=== PATIENT | male | born 1980 | race Caucasian/White ===

== ENCOUNTER 2020-01-30 04:53 | Emergency (ER) | payer OTHER ==
[~2020-01-30] VITALS: Ht 187.9 cm; Wt 81.6 kg
--- OUTSIDE RECORDS SUMMARY | 2020-01-30 05:18 | XMS REPORT | Continuity of Care Document ---
Author Author The [facility] Organization The [facility] Address Unknown Phone Unavailable Allergies Active Description Code Type Severity Reaction Onset Reported/Identified Relationship to Patient Clinical Status Yes No Known Allergies [id number] Drug Allergy Unknown N/A 07/23/2009 Medications There is no data. Problems Date Dx Coded Attending Type Code Diagnosis Diagnosed By 09/09/2017 NICKO GUTIÉRREZ PA-C Other F17.200 NICOTINE DEPENDENCE, UNSPECIFIED, UNCOMPLICATED 09/09/2017 NICKO GUTIÉRREZ PA-C Other J40 BRONCHITIS, NOT SPECIFIED ACUTE OR CHRONIC 09/09/2017 NICKO GUTIÉRREZ PA-C Other K04.7 PERIAPICAL ABSCESS WITHOUT SINUS 09/09/2017 NICKO GUTIÉRREZ PA-C Other K08.89 OTHER SPECIFIED DISORDERS OF TEETH AND SUPPORTING STRU CTURES 03/15/2018 NICKO GUTIÉRREZ PA-C Other S05.01XA INJ CONJUNCTIVA AND CORNEAL ABRASION W/O FB, RIGHT EYE , INIT 03/15/2018 NICKO GUTIÉRREZ PA-C Other W45.8XXA OTH FOREIGN BODY OR OBJECT ENTERING THROUGH SKIN, INIT Procedures There is no data. Results There is no data. Encounters ACCT No. Visit Date/Time Discharge Status Pt. Type Provider Facility Loc./Unit Complaint [id number] 03/15/2018 21:50:00 018 23:28:00 DIS Emergency NICKO GUTIÉRRZE PA-C [facility] [place] ER RIGHT EYE PAIN [id number] 09/09/2017 05:10:00 018 05:58:00 DIS Emergency NICKO GUTIÉRREZ PA-C [facility] [place] ER TOOTH PAIN;COUGH
--- OUTSIDE RECORDS SUMMARY | 2020-01-30 05:18 | XMS REPORT | Continuity of Care Document ---
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 Past Problems Medical Problem Onset Date Status Acute periapical abscess Unknown Acute Bronchitis Unknown Acute Right corneal abrasion Unknown Acute Toothache Unknown Acute Medications Current Home Medications Medication Dose Units Route Directions Days Qty Instructio ns Start Date Acetaminophen/Hydrocodone Bitart (Lortab) 5 Mg/500 Mg Tab 1 - 2 Tab Oral Every 4 Hours As Needed 16 Tablet 02/22/11 Acetaminophen/Hydrocodone Bitart (Lortab) 5 Mg/500 Mg Tablet 1 - 2 Tab Oral Every 6 Hours As Needed 20 Tablet Prn pain not relieved by Diclofenac 02/06/12 Diclofenac Sodium 75 Mg Tablet.dr 75 Mg Oral Twice A Day 20 Tablet 02/06/12 Naproxen 500 Mg Tablet 500 Mg Oral Twice Daily With Meals 20 Tablet 02/22/11 Ofloxacin (Ocuflox) 5 Ml Drops 2 Drp Right Eye Four Times Lucinda y 7 Days 1 Bottle 03/15/18 Past Home Medications Medication Directions Ordered Status Penicillin V Potassium 500 Mg Tablet, 500 Mg Oral Every 6 Hours 09/09/17 Discontinued Social History Social History Problem Response Recorded Date/Time Onset Date Status Marital Status 03/15/2018 10:03pm Not Applicable Not A pplicable Smoking Status Start Date Stop Date Current every day smoker Hospital Discharge Instructions No hospital discharge instruction information available. Plan of Care Discharge Date 03/15/18 11:28pm Disposition 01 HOME/SELF CARE Condition at Discharge Good Instructions/Education Provided ED Eye Injury Corneal Abrasion Prescriptions See Medication Section Referrals NONE Note: AYLEEN POSEY MD Order Date: 1-2 days Address: [facility] [address] [address] Additional Instructions/Education Ocuflox to right eye as prescribed Follow-up with ophthalmology in 1- 2 days for eye exam Take Tylenol and Motrin for pain and fever Continue any previously prescribed medications Increase fluid intake Follow-up with your primary care physician in 3-4 days or sooner if symptoms persist. Return to the emergency department for any worsening or persistent symptoms. Functional Status No functional status information available. Allergies, Adverse Reactions, Alerts No known allergies. Immunizations Immunization Event Date Type Not Given Reason Dose Number Lot Num merlyn [employer] Tetanus, Diphtheria, Pertussis (Tdap) Vaccine 03/15/18 Administered 1 [id number] [employer] Vital Signs Acute Vital Signs Vital Response Date/Time Height (Feet) 6 feet 03/15/2018 10:00pm Height (Inches) 2.00 inches 03/15/2018 10:00pm Height (Calculated Centimeters) 187.112646 cm 03/15/20 18 10:00pm Weight (Pounds) 180.0 03/15/2018 10:00pm Weight (Calculated Kilograms) 81.144403 kg 03/15/2018 10:00pm Weight (Calculated Grams) 23987.627 gm 03/15/2018 10: 00pm Body Mass Index (BMI) 23 03/15/2018 10:00pm Body Mass Index (BMI) Classification Normal Weight 06/2017 10:00pm Temperature (Fahrenheit) 98.2 degrees F (96.8 - 100.4) 03/15 11:28pm Blood Pressure Systolic 127 mm Hg (100 - 140) 03/15/2018 11: 28pm Blood Pressure Diastolic 83 mm Hg (60 - 100) 03/15/2018 11:2 8pm Pulse Rate (adult) 73 beats per minute (60 - 100) 8 11:28pm Respirations 18 breaths per minute (12 - 20) 03/15/20 18 11:28pm O2 Sat by Pulse Oximetry 98 % (90 - 100) 03/15/2018 11:2 8pm Results No relevant diagnostic test, laboratory data and/or discharge summary informatio n available. Procedures Procedure Status Date Provider(s) EMERGENCY DEPT VISIT Completed 09/09/17 EMERGENCY DEPT VISIT Completed 09/09/17 DRUGS UNCLASSIFIED INJECTION Completed 09/09/17 DRUGS UNCLASSIFIED INJECTION Completed 09/09/17 Encounters Encounter Location Arrival/Admit Date Discharge/Depart Date Attending Provider Departed Emergency Room [facility] 03/15/18 9:50pm 03/15/18 11:28pm NICKO GUTIÉRREZ PA-C Departed Emergency Room [facility] 09/09/17 5:10am 09/09/17 5:58am NICKO GUTIÉRREZ PA-C Recent Diagnosis
--- NOTE | 2020-01-30 05:25 | ED Headache ---
General Chief Complaint: Head/Cervical Problems Stated Complaint: MIGRAINE Nursing Triage Note: Patient came in via EMS with a migraine. EMS gave 50mcg of Fentanyl. Patient rates his pain at a 9. Nursing Sepsis Screen: No Definite Risk History of Present Illness Date Seen by Provider: Jan 30, 2020 Time Seen by Provider: 05:22 Initial Comments Pt brought by EMS from home for headache. Started about 90 minutes ago. He reports a history of migraines, but hasn't had one this bad in a log time. Normally takes some Advil and it gets better. He was given 50 mcg of Fentanyl en route. Allergies and Home Medications Allergies Coded Allergies: No Known Drug Allergies (Unverified , 01/30/20) Patient Home Medication List Home Medication List Reviewed: Yes Review of Systems Review of Systems Constitutional: no symptoms reported Eyes: Photophobia Ears, Nose, Mouth, Throat: no symptoms reported Respiratory: no symptoms reported Cardiovascular: no symptoms reported Gastrointestinal: nausea; No vomiting Psychiatric/Neurological: Headache Past Fuxotxk-Hxpply-Oqpfih Hx Patient Social History Alcohol Use: Denies Use Recreational Drug Use: No Smoking Status: Current Everyday Smoker Type Used: Cigarettes Recent Foreign Travel: No Contact w/Someone Who Travel: No Recent Infectious Disease Expo: No Physical Abuse: No Sexual Abuse: No Mistreated: No Fear: No Past Medical History Surgeries: Yes Appendectomy Respiratory: No Cardiac: No Neurological: Yes Headaches /Migraines Genitourinary: No Gastrointestinal: No Musculoskeletal: No Endocrine: No HEENT: No Cancer: No Psychosocial: No Integumentary: No Physical Exam Vital Signs Vital Signs - First Documented 01/30/20 05:02 Temp 36.6 Pulse 78 Resp 18 B/P (MAP) 147/88 (107) Pulse Ox 96 O2 Delivery Room Air Capillary Refill : Less Than 3 Seconds Height, Weight, BMI Height: '" Weight: lbs. oz. kg; 23.00 BMI Method: General Appearance: WD/WN, no apparent distress HEENT: PERRL/EOMI, photophobia Neck: supple Cardiovascular: normal peripheral pulses, regular rate, rhythm Respiratory: lungs clear, normal breath sounds, no respiratory distress Gastrointestinal: non tender, soft Psychiatric: alert, oriented x 3 Motor/Sensory: no motor deficit, no sensory deficit Progress/Results/Core Measures Results/Orders My Orders Orders - NEREIDA MARCELINO MD Ketorolac Injection (Toradol Injection) (01/30/20 05:30) Prochlorperazine Injection (Compazine In (01/30/20 05:30) Ct Head Wo (01/30/20 05:21) Medications Given in ED Current Medications Medications Dose Ordered Sig/Lillian Route Start Time Stop Time Status Last Admin Dose Admin Ketorolac Tromethamine 30 mg ONCE ONCE IVP 01/30/20 05:30 01/30/20 05:31 DC 01/30/20 05:26 30 MG Prochlorperazine Edisylate 10 mg ONCE ONCE IV 01/30/20 05:30 01/30/20 05:31 DC 01/30/20 05:25 10 MG Vital Signs/I&O 01/30/20 05:02 Temp 36.6 Pulse 78 Resp 18 B/P (MAP) 147/88 (107) Pulse Ox 96 O2 Delivery Room Air Blood Pressure Mean: 107 Transfer of Care Time: 06:00 Care transferred to: Dr. Nair Departure Impression Primary Impression: Headache Qualified Codes: R51 - Headache Disposition: 30 STILL A PATIENT Condition: Stable Departure-Patient Inst. Referrals: NO,LOCAL PHYSICIAN (PCP/Family) Primary Care Physician Patient Instructions: Migraine Headache (DC) NEREIDA MARCELINO MD Jan 30, 2020 05:25
[2020-01-30] MEDS ORDERED: KETOROLAC 30 MG/ML VIAL IVP ONE (05:30)
[2020-01-30] MEDS ORDERED: PROCHLORPERAZINE 10 MG/2ML INJ (COMPAZINE) IV ONE (05:30)
[2020-01-30 06:20] VITALS: BP 147/88
--- NOTE | 2020-01-30 06:22 | Diagnostic Imaging Report ---
PROCEDURE: CT head without contrast. TECHNIQUE: Multiple contiguous axial images were obtained through the brain without the use of intravenous contrast. Auto Exposure Controls were utilized during the CT exam to meet ALARA standards for radiation dose reduction. INDICATION: Migraine headache. COMPARISON: None. FINDINGS: Ventricles are normal in size, shape and position. There is no midline shift or mass effect. There is no hemorrhage or evidence of acute ischemia. No extra-axial fluid collection or mass is identified. The bony calvarium and paranasal sinuses grossly unremarkable. Mastoids are poorly aerated. There is no effusion. IMPRESSION: No acute intracranial abnormalities. Dictated by: Dictated on workstation # [id number]
== END 2020-01-30 06:20 | disposition home or self-care (01) ==
LOC: ER FS 05:15
DX: R51 Headache (principal); F17.210 Nicotine dependence, cigarettes, uncomplicated; Z86.69 Personal history of other diseases of the nervous system and sense organs
CPT/HCPCS: 70450

== ENCOUNTER 2023-03-22 18:34 | Inpatient (IN) | payer OTHER ==
[~2023-03-22] VITALS: Ht 190.5 cm; Wt 87.8 kg
[2023-03-22 18:43] LABS: BILIRUBIN,URINE NEGATIVE (NEGATIVE); CLARITY,URINE CLEAR; COLOR,URINE YELLOW; GLUCOSE, URINE (UA) 3+ (NEGATIVE); KETONES,URINE NEGATIVE (NEGATIVE); LEUKOCYTE ESTERASE ,URINE NEGATIVE (NEGATIVE); NITRITE,URINE NEGATIVE (NEGATIVE); PROTEIN,URINE NEGATIVE (NEGATIVE)
[2023-03-22] MEDS ORDERED: NS IV 1000 ML 2,000 ML IV SCH (18:45)
[2023-03-22 18:46] LABS: BACTERIA,URINE NEGATIVE /HPF
--- NOTE | 2023-03-22 18:47 | ED General ---
General Chief Complaint: - Reproductive Stated Complaint: FREQUENT URINATION; FATIGUE; BLURRY VISION Source of Information: Patient, Family Exam Limitations: No Limitations History of Present Illness Date Seen by Provider: Mar 22, 2023 Time Seen by Provider: 18:38 Initial Comments 42-year-old male with no known medical problems presents to the emergency department today for fatigue blurred vision increased thirst and frequent urination. Symptoms started about a week ago with increased urination and thirst in the 50 have's been progressive since that time. He started to have blurred vision today. He is not known to be diabetic and his blood sugar is too high to read on arrival. He denies any fevers chills cough abdominal pain chest pain or changes in bowel habits. No dysuria or hematuria. All other systems reviewed and negative except documented per HPI. Voice recognition software was used to help create this chart Allergies and Home Medications Allergies Coded Allergies: No Known Drug Allergies (Unverified , 01/30/20) Patient Home Medication List Home Medication List Reviewed: Yes Review of Systems Review of Systems Constitutional: see HPI Past Iohtthc-Iwtmeg-Ncbwoj Hx Patient Social History Tobacco Use?: Yes Tobacco type used: Cigarettes Use of E-Cig and/or Vaping dev: No Substance use?: No Alcohol Use?: No Past Medical History Surgeries: Yes Appendectomy Respiratory: No Cardiac: No Neurological: Yes Headaches /Migraines Genitourinary: No Gastrointestinal: No Musculoskeletal: No Endocrine: No HEENT: No Cancer: No Psychosocial: No Integumentary: No Physical Exam Vital Signs Vital Signs - First Documented 03/22/23 18:36 Temp 36.5 Pulse 87 Resp 18 B/P (MAP) 132/88 (103) Pulse Ox 99 O2 Delivery Room Air Capillary Refill : Height, Weight, BMI Height: '" Weight: lbs. oz. 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 Skin: Normal Color, Warm/Dry Progress/Results/Core Measures Suspected Sepsis SIRS Temperature: Pulse: Respiratory Rate: Laboratory Tests 03/22/23 18:45: White Blood Count 7.8 Blood Pressure / Mean: Laboratory Tests 03/22/23 18:45: Creatinine 1.04, Platelet Count 214, Total Bilirubin 0.9 Results/Orders Lab Results Laboratory Tests Test 03/22/23 18:36 03/22/23 18:45 Range/Units Urine Color YELLOW Urine Clarity CLEAR Urine pH 6.0 5-9 Urine Specific [place] <=1.005 1.016-1.022 Urine Protein NEGATIVE NEGATIVE Urine Glucose (UA) 3+ H NEGATIVE Urine Ketones NEGATIVE NEGATIVE Urine Nitrite NEGATIVE NEGATIVE Urine Bilirubin NEGATIVE NEGATIVE Urine Urobilinogen 0.2 < = 1.0 MG/DL Urine Leukocyte Esterase NEGATIVE NEGATIVE Urine RBC (Auto) NEGATIVE NEGATIVE Urine RBC NONE /HPF Urine WBC NONE /HPF Urine Squamous Epithelial Cells NONE /HPF Urine Crystals NONE /LPF Urine Bacteria NEGATIVE /HPF Urine Casts NONE /LPF Urine Mucus NEGATIVE /LPF Urine Culture Indicated NO White Blood Count 7.8 4.3-11.0 10^3/uL Red Blood Count 5.62 H 4.30-5.52 10^6/uL Hemoglobin 17.9 H 13.3-17.7 g/dL Hematocrit 50 40-54 % Mean Corpuscular Volume 89 80-99 fL Mean Corpuscular Hemoglobin 32 25-34 pg Mean Corpuscular Hemoglobin Concent 36 32-36 g/dL Red Cell Distribution Width 12.0 10.0-14.5 % Platelet Count 214 130-400 10^3/uL Mean Platelet Volume 11.6 9.0-12.2 fL Immature Granulocyte % (Auto) 0 % Neutrophils (%) (Auto) 60 42-75 % Lymphocytes (%) (Auto) 30 12-44 % Monocytes (%) (Auto) 7 0-12 % Eosinophils (%) (Auto) 2 0-10 % Basophils (%) (Auto) 1 0-10 % Neutrophils # (Auto) 4.7 1.8-7.8 10^3/uL Lymphocytes # (Auto) 2.3 1.0-4.0 10^3/uL Monocytes # (Auto) 0.6 0.0-1.0 10^3/uL Eosinophils # (Auto) 0.1 0.0-0.3 10^3/uL Basophils # (Auto) 0.1 0.0-0.1 10^3/uL Immature Granulocyte # (Auto) 0.0 0.0-0.1 10^3/uL Sodium Level 125 *L 135-145 MMOL/L Potassium Level 5.4 H 3.6-5.0 MMOL/L Chloride Level 86 L 98-107 MMOL/L Carbon Dioxide Level 25 21-32 MMOL/L Anion Gap 14 5-14 MMOL/L Blood Urea Nitrogen 18 7-18 MG/DL Creatinine 1.04 0.60-1.30 MG/DL Estimat Glomerular Filtration Rate 93 BUN/Creatinine Ratio 17 Glucose Level 970 *H 70-105 MG/DL Calcium Level 10.6 H 8.5-10.1 MG/DL Corrected Calcium 8.5-10.1 MG/DL Total Bilirubin 0.9 0.1-1.0 MG/DL Aspartate Amino Transf (AST/SGOT) 18 5-34 U/L Alanine Aminotransferase (ALT/SGPT) 27 0-55 U/L Alkaline Phosphatase 214 H 40-136 U/L Total Protein 8.8 H 6.4-8.2 GM/DL Albumin 4.9 H 3.2-4.5 GM/DL My Orders Orders - AC BURLESON DO Ua Culture If Indicated (03/22/23 18:38) Cbc And Automated Diff (03/22/23 18:38) Comprehensive Metabolic Panel (03/22/23 18:38) Accucheck Stat ONCE (03/22/23 18:39) Ns Iv 1000 Ml (Ns Iv 1000 Ml) (03/22/23 18:45) Ed Iv/Invasive Line Start (03/22/23 18:59) Insulin Regular Drip (Insulin Regular Dr (03/22/23 19:15) Ed Admission (Communication) (03/22/23 19:21) Vital Signs/I&O 03/22/23 18:36 Temp 36.5 Pulse 87 Resp 18 B/P (MAP) 132/88 (103) Pulse Ox 99 O2 Delivery Room Air Capillary Refill : Departure Communication (Admissions) Patient is hemodynamically stable. He is alert oriented with normal vital signs at this time. He is minimally symptomatic. His blood sugars 962. Sodium is low but corrects for glucose. Potassium slightly elevated at 5.4. Does have a slight elevation of alk phos and total protein. CBC is unremarkable. Is no evidence for any overt infection I think this is undiagnosed diabetes mellitus and likely HHNK he is given 2 L of IV fluids and started on an insulin drip. I spoke Dr. Maldonado he has no further orders at this time. Patient be admitted to the ICU in [place] on an insulin drip. Impression Primary Impression: Diabetes mellitus Qualified Codes: E11.9 - Type 2 diabetes mellitus without complications Disposition: 30 STILL A PATIENT Condition: Stable Admissions Decision to Admit Reason: Admit from ER (General) Departure-Patient Inst. Referrals: NO,LOCAL PHYSICIAN (PCP/Family) Primary Care Physician AC BURLESON DO Mar 22, 2023 18:47
[2023-03-22 18:50] LABS: BASOPHILS # (AUTO) 0.1 10^3/uL (0.0-0.1); BASOPHILS % (AUTO) 1 % (0-10); EOSINOPHILS # (AUTO) 0.1 10^3/uL (0.0-0.3); EOSINOPHILS % (AUTO) 2 % (0-10); HEMATOCRIT 50 % (40-54); HEMOGLOBIN 17.9 g/dL (13.3-17.7); LYMPHOCYTES # (AUTO) 2.3 10^3/uL (1.0-4.0); LYMPHOCYTES % (AUTO) 30 % (12-44); MEAN CORPUSCULAR HEMOGLOBIN 32 pg (25-34); MEAN CORPUSCULAR HGB CONC 36 g/dL (32-36); MEAN CORPUSCULAR VOLUME 89 fL (80-99); MEAN PLATELET VOLUME 11.6 fL (9.0-12.2); MONOCYTES # (AUTO) 0.6 10^3/uL (0.0-1.0); MONOCYTES % (AUTO) 7 % (0-12); NEUTROPHILS # (AUTO) 4.7 10^3/uL (1.8-7.8); NEUTROPHILS % (AUTO) 60 % (42-75); PLATELET COUNT 214 10^3/uL (130-400); WHITE BLOOD COUNT 7.8 10^3/uL (4.3-11.0)
[2023-03-22 19:08] LABS: ALANINE AMINOTRANSFERASE 27 U/L (0-55); ALBUMIN 4.9 GM/DL (3.2-4.5); ALKALINE PHOSPHATASE 214 U/L (40-136); BILIRUBIN,TOTAL 0.9 MG/DL (0.1-1.0); BUN/CREATININE RATIO 17; CALCIUM 10.6 MG/DL (8.5-10.1); CARBON DIOXIDE 25 MMOL/L (21-32); CHLORIDE 86 MMOL/L (98-107); CREATININE SERUM 1.04 MG/DL (0.60-1.30); GFR ESTIMATED 93; POTASSIUM 5.4 MMOL/L (3.6-5.0); TOTAL PROTEIN 8.8 GM/DL (6.4-8.2)
[2023-03-22 19:10] LABS: SODIUM 125 MMOL/L (135-145)
[2023-03-22 19:19] LABS: GLUCOSE 970 MG/DL (70-105)
[2023-03-22] MEDS ORDERED: ACETAMINOPHEN 500 MG TABLET PO PRN (21:15)
[2023-03-22] MEDS ORDERED: DEXTROSE 50% 50 ML (IMS) SYR IV PRN ×2 (21:15)
[2023-03-22] MEDS: NS IV 1000 ML 1,000 ML IV SCH (21:34)
--- NOTE | 2023-03-23 00:46 | Tele-ICU Consult ---
Progress Note 42 yo male presented with fatigue, blurred vision, thirst, found to have hyperglycemia, no anion gap or acidosis, was on non DKA protocol per bedside nurse Focused Exam Sepsis Stage: Ruled Out Height, Weight, BMI Height: '" Weight: lbs. oz. kg; 24.49 BMI Method: Respiratory: No Accessory Muscle Use, No Respiratory Distress Allergies and Home Medications Allergies Coded Allergies: No Known Drug Allergies (Unverified , 01/30/20) Assessment/Plan Assessment/Plan Admission Diagnosis/Plan Uncontrolled DM, resolve with insulin, get f/u labs Admission Status: Observation Past Ykrbtjq-Wylpda-Iiuuar Hx Patient Social History Smoking Status: Current Everyday Smoker Type Used: Cigarettes Alcohol Use?: No Vital Signs Vitals Signs Source: Oral, Heart Rate: 75, Respiratory Rate: 18, BP: 121/79, Pulse Oximetry: 97, Weight: 88.9 Vitals - Labs Vital Signs - I&O Vital Signs Date Time Temp Pulse Resp B/P (MAP) Pulse Ox O2 Delivery O2 Flow Rate FiO2 03/23/23 00:15 36.2 03/23/23 00:00 77 19 112/80 (91) 97 Room Air 03/22/23 23:59 97 Room Air 03/22/23 23:00 73 14 97/60 (72) 96 Room Air 03/22/23 22:00 77 20 108/82 (89) 96 Room Air 03/22/23 21:50 97 Room Air 03/22/23 21:45 79 16 96 Room Air 03/22/23 21:30 74 14 111/82 (90) 97 Room Air 03/22/23 21:15 77 18 119/81 (88) 97 Room Air 03/22/23 21:00 36.0 87 10 138/124 (131) 97 Room Air 03/22/23 20:57 75 03/22/23 20:01 72 18 121/79 98 Room Air 03/22/23 18:36 36.5 87 18 132/88 (103) 99 Room Air I & O 03/23/23 07:00 Intake Total 2000 ml Balance 2000 ml Labs Laboratory Tests 03/22/23 18:36: Urine Color YELLOW, Urine Clarity CLEAR, Urine pH 6.0, Urine Specific [place] <=1.005, Urine Protein NEGATIVE, Urine Glucose (UA) 3+H, Urine Ketones NEGATIVE, Urine Nitrite NEGATIVE, Urine Bilirubin NEGATIVE, Urine Urobilinogen 0.2, Urine Leukocyte Esterase NEGATIVE, Urine RBC (Auto) NEGATIVE, Urine RBC NONE, Urine WBC NONE, Urine Squamous Epithelial Cells NONE, Urine Crystals NONE, Urine Bacteria NEGATIVE, Urine Casts NONE, Urine Mucus NEGATIVE, Urine Culture Indicated NO 03/22/23 18:45: White Blood Count 7.8, Red Blood Count 5.62H, Hemoglobin 17.9H, Hematocrit 50, Mean Corpuscular Volume 89, Mean Corpuscular Hemoglobin 32, Mean Corpuscular Hemoglobin Concent 36, Red Cell Distribution Width 12.0, Platelet Count 214, Mean Platelet Volume 11.6, Immature Granulocyte % (Auto) 0, Neutrophils (%) (Auto) 60, Lymphocytes (%) (Auto) 30, Monocytes (%) (Auto) 7, Eosinophils (%) (Auto) 2, Basophils (%) (Auto) 1, Neutrophils # (Auto) 4.7, Lymphocytes # (Auto) 2.3, Monocytes # (Auto) 0.6, Eosinophils # (Auto) 0.1, Basophils # (Auto) 0.1, Immature Granulocyte # (Auto) 0.0, Sodium Level 125*L, Potassium Level 5.4H, Chloride Level 86L, Carbon Dioxide Level 25, Anion Gap 14, Blood Urea Nitrogen 18, Creatinine 1.04, Estimat Glomerular Filtration Rate 93, BUN/Creatinine Ratio 17, Glucose Level 970*H, Calcium Level 10.6H, Corrected Calcium , Total Bilirubin 0.9, Aspartate Amino Transf (AST/SGOT) 18, Alanine Aminotransferase (ALT/SGPT) 27, Alkaline Phosphatase 214H, Total Protein 8.8H, Albumin 4.9H 03/22/23 20:57: Glucometer 486*H 03/22/23 21:56: Glucometer 281H 03/22/23 22:58: Glucometer 242H 03/22/23 23:54: Glucometer 179H NOLA POLO MD Mar 23, 2023 00:45
[2023-03-23 01:18] LABS: BASOPHILS # (AUTO) 0.1 10^3/uL (0.0-0.1); BASOPHILS % (AUTO) 1 % (0-10); EOSINOPHILS # (AUTO) 0.2 10^3/uL (0.0-0.3); EOSINOPHILS % (AUTO) 2 % (0-10); HEMATOCRIT 44 % (40-54); LYMPHOCYTES # (AUTO) 4.6 10^3/uL (1.0-4.0); LYMPHOCYTES % (AUTO) 45 % (12-44); MEAN CORPUSCULAR HEMOGLOBIN 32 pg (25-34); MEAN CORPUSCULAR HGB CONC 37 g/dL (32-36); MEAN CORPUSCULAR VOLUME 86 fL (80-99); MEAN PLATELET VOLUME 11.3 fL (9.0-12.2); MONOCYTES # (AUTO) 0.9 10^3/uL (0.0-1.0); MONOCYTES % (AUTO) 9 % (0-12); NEUTROPHILS # (AUTO) 4.3 10^3/uL (1.8-7.8); NEUTROPHILS % (AUTO) 42 % (42-75); PLATELET COUNT 225 10^3/uL (130-400); WHITE BLOOD COUNT 10.2 10^3/uL (4.3-11.0)
[2023-03-23 01:27] LABS: POTASSIUM 3.2 MMOL/L (3.6-5.0)
[2023-03-23 01:28] LABS: CALCIUM 8.8 MG/DL (8.5-10.1)
[2023-03-23 01:33] LABS: CREATININE SERUM 0.92 MG/DL (0.60-1.30); PHOSPHORUS 3.9 MG/DL (2.3-4.7)
[2023-03-23] MEDS ORDERED: NS IV 500 ML 500 ML IV PRN (03:00)
[2023-03-23] MEDS: NS IV 1000 ML 1,000 ML IV SCH (03:33)
[2023-03-23 05:16] LABS: BASOPHILS # (AUTO) 0.1 10^3/uL (0.0-0.1); BASOPHILS % (AUTO) 1 % (0-10); EOSINOPHILS # (AUTO) 0.2 10^3/uL (0.0-0.3); EOSINOPHILS % (AUTO) 2 % (0-10); HEMATOCRIT 40 % (40-54); HEMOGLOBIN 14.7 g/dL (13.3-17.7); LYMPHOCYTES # (AUTO) 2.8 10^3/uL (1.0-4.0); LYMPHOCYTES % (AUTO) 37 % (12-44); MEAN CORPUSCULAR HEMOGLOBIN 32 pg (25-34); MEAN CORPUSCULAR HGB CONC 37 g/dL (32-36); MEAN CORPUSCULAR VOLUME 87 fL (80-99); MEAN PLATELET VOLUME 11.4 fL (9.0-12.2); MONOCYTES # (AUTO) 0.5 10^3/uL (0.0-1.0); MONOCYTES % (AUTO) 6 % (0-12); NEUTROPHILS % (AUTO) 53 % (42-75); PLATELET COUNT 180 10^3/uL (130-400); WHITE BLOOD COUNT 7.6 10^3/uL (4.3-11.0)
[2023-03-23 05:30] LABS: POTASSIUM 3.4 MMOL/L (3.6-5.0)
[2023-03-23 05:31] LABS: CALCIUM 8.1 MG/DL (8.5-10.1)
[2023-03-23] MEDS: MAGNESIUM 1 GM/100 ML IVPB 100 ML IV SCH (05:34)
[2023-03-23] MEDS: POTASSIUM CL 10MEQ/50ML IVPB 50 ML IV SCH (05:34)
[2023-03-23 05:35] LABS: CREATININE SERUM 0.83 MG/DL (0.60-1.30)
[2023-03-23] MEDS: POTASSIUM CHLORIDE 20 MEQ TABLET PO SCH (05:35)
[2023-03-23] MEDS ORDERED: POTASSIUM CHLORIDE 20 MEQ TABLET PO ONE (06:00)
[2023-03-23] MEDS ORDERED: D5 1/2NS + KCL 20 MEQ/L 1000ML 1,000 ML IV SCH (09:30)
--- NOTE | 2023-03-23 09:34 | Tele-ICU Progress Note ---
Subjective Date Seen by a Provider: Mar 23, 2023 Time Seen by a Provider: 10:20 Subjective/Events-last exam (Tele-ICU Physician , Progress Note ) Service provided via interactive audio and video telecommunications [facility] stem to a patient admitted to ICU bed in [facility]. Patient is seen today due to persistent need of ICU care Available chart/ vitals / labs / Images reviewed Video assessment done using teleICU camera, rest of exam as per RN He is a 42-year-old male with no known past medical history presented to the emergency room with a complaint of increased thirst and frequent urination. And he is found to have a markedly elevated blood sugar with a normal anion gap. He denies any fever chills chest pain or abdominal pain. He does however have a blurred vision. He is not known to have any diabetes in the past. He is diagnosed with HHS and admitted to the ICU started on IV insulin per protocol. Impression 1. HHS 2. Hyponatremia secondary to hyperglycemia with pseudohyponatremia. 3. Hypokalemia secondary to HHS and insulin treatment. Recommendations 1. Continue IV insulin per protocol 2. Correct electrolyte imbalance 3. Hydrate patient with D5 half-normal saline 4. Check hemoglobin A1c. Coordination of care with primary care physician and bedside consultants I am remotely monitoring this patient from Tele icu station in [place]. I am unable to do the bedside exam, and history/physical and pertinent information is taken from other notes in the computer and bedside staff. Certain portions of this document may have been dictated utilizing voice recognition technology such as [employer]. Inherent to this technology, typographical and grammatical errors may exist. As much as I am diligent to identify and correct to these mistakes, some errors may remain in the document. Critical care time devoted to this patient today is approximately is-25 minutes Sepsis Event Evaluation Height, Weight, BMI Height: '" Weight: lbs. oz. kg; 24.49 BMI Method: Exam Exam Patient acknowledged, consented, and participated in this virtual visit which was conducted using real time audio/video Vital Signs Date Time Temp Pulse Resp B/P (MAP) Pulse Ox O2 Delivery O2 Flow Rate FiO2 03/23/23 09:00 68 18 106/63 (77) 95 Room Air 03/23/23 08:00 71 10 109/70 (83) 96 Room Air 03/23/23 07:38 36.4 10/9/23 07:29 58 03/23/23 07:00 60 14 108/70 (83) 96 Room Air 03/23/23 06:30 56 14 95 Room Air 03/23/23 06:00 62 16 106/60 (84) 95 Room Air 03/23/23 05:00 60 13 114/72 (84) 96 Room Air 03/23/23 04:41 97 Room Air 03/23/23 04:00 36.0 70 18 97/62 (77) 92 Room Air 03/23/23 03:00 64 15 96/49 (62) 92 Room Air 03/23/23 02:15 64 16 94 Room Air 03/23/23 02:00 69 8 105/68 (77) 95 Room Air 03/23/23 01:00 70 24 103/65 (77) 95 Room Air 03/23/23 01:00 75 03/23/23 00:15 36.2 03/23/23 00:00 77 19 112/80 (91) 97 Room Air 03/22/23 23:59 97 Room Air 03/22/23 23:00 73 14 97/60 (72) 96 Room Air 03/22/23 22:00 77 20 108/82 (89) 96 Room Air 03/22/23 21:50 97 Room Air 03/22/23 21:45 79 16 96 Room Air 03/22/23 21:30 74 14 111/82 (90) 97 Room Air 03/22/23 21:15 77 18 119/81 (88) 97 Room Air 03/22/23 21:00 36.0 87 10 138/124 (131) 97 Room Air 03/22/23 20:57 75 03/22/23 20:01 72 18 121/79 98 Room Air 03/22/23 18:36 36.5 87 18 132/88 (103) 99 Room Air I & O 03/23/23 07:00 Intake Total 3900 ml Balance 3900 ml Height & Weight Height: '" Weight: lbs. oz. 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
[2023-03-23] MEDS: ENOXAPARIN 40 MG/0.4 ML SYRINGE SC SCH (12:29)
[2023-03-23] MEDS ORDERED: inSUlin DETERMIR 1 UNIT/0.01 ML (CHARGE PER UNIT) SQ NR (13:30)
[2023-03-23] MEDS ORDERED: metFORMIN 500 MG TABLET PO ONE (14:45)
[2023-03-23] MEDS: inSUlin ASPART 1 UNIT/0.01 ML (PER UNIT) SC SCH ×2 (16:23→21:08)
[2023-03-23] MEDS: NICOTINE 21 MG PATCH TD SCH (16:32)
--- NOTE | 2023-03-23 18:53 | History & Physical-Hospitalist ---
History of Present Illness HPI/Chief Complaint Hugo Sanchez is a 42 year old male with no known past medical history who presented with fatigue. He was also having increased urination and excessive thirst. He denies increased appetite. He denies abdominal pain, nausea, and vomiting. He denies chest pain. He denies shortness of breath and cough. He denies fevers and chills. He denies sore throat and runny nose. He has a family history of diabetes in his grandmother. He smokes a pack of cigarettes daily. He also drinks a 12 pack of Mountain Dew daily. Source: patient Exam Limitations: no limitations Date Seen 03/23/23 Time Seen by a Provider: 10:10 Attending Physician No,Local Physician PCP Admitting Physician: Walter Maldonado MD Attending Physician: Arianna Barboza MD Referring Physician Date of Admission Mar 22, 2023 at 20:51 Home Medications & Allergies Home Medications Reviewed patient Home Medication Reconciliation performed by pharmacy medication reconciliations emergency medical technician and/or nursing. Patients Allergies have been reviewed. Allergies Allergies Coded Allergies No Known Drug Allergies (Unverified01/30/20) Past Bxuzkrz-Ztdfis-Gvlabh Hx Patient Social History Tobacco Use?: No Tobacco type used: Cigarettes Smoking Status: Current Everyday Smoker Use of E-Cig and/or Vaping dev: No Substance use?: No Alcohol Use?: No Pt feels they are or have been: No Immunizations Up To Date Tetanus Booster (TDap): More Than 5 Years Current Status Advance Directives: No Communicates: Verbally Primary Language: Russian Preferred Spoken Language: Russian Is interpretation needed?: No Implanted or Applied Medical D: None Past Medical History Surgeries: Appendectomy Headaches /Migraines Review of Systems Constitutional: weakness Respiratory: no symptoms reported Cardiovascular: no symptoms reported Gastrointestinal: no symptoms reported Genitourinary: frequency Physical Exam Physical Exam Vital Signs Vital Signs - First Documented 03/22/23 18:36 Temp 36.5 Pulse 87 Resp 18 B/P (MAP) 132/88 (103) Pulse Ox 99 O2 Delivery Room Air Capillary Refill : Less Than 3 Seconds Height, Weight, BMI Height: '" Weight: lbs. oz. kg; 24.49 BMI Method: General Appearance: No Apparent Distress, WD/WN HEENT: PERRL/EOMI, Pharynx Normal Neck: Normal Inspection, Supple Respiratory: Lungs Clear, No Respiratory Distress Cardiovascular: Regular Rate, Rhythm, No Murmur Gastrointestinal: Normal Bowel Sounds, Soft Extremity: Normal Inspection, No Pedal Edema Neurologic/Psychiatric: Alert, Normal Mood/Affect Skin: Normal Color, Warm/Dry Results Results/Procedures Labs Laboratory Tests 03/22/23 18:45 03/23/23 01:05 03/23/23 04:55 Patient resulted labs reviewed. Imaging: Reviewed Imaging Report Assessment/Plan Admission Diagnosis T2DM with HHS Admission Status: Inpatient Order (span 2 midnights) Reason for Inpatient Admission: Insulin drip Assessment and Plan New onset T2DM with HHS Pseudohyponatremia Hyperkalemia Hypokalemia Glucose >900 on arrival No ketoacidosis IV fluids IV insulin Blood sugars improved Begin Levemir Transition off drip Begin Metformin Sliding scale insulin A Diabetes education Monitor and correct electrolytes as needed Transfer to medical floor Excessive consumption of soda pop Cessation recommended Tobacco abuse Cessation recommended DVT prophylaxis: Lovenox Critical Care Critically Ill Patient Diagnosis/Problems Diagnosis/Problems (1) New onset type 2 diabetes mellitus Status: Acute (2) T2DM (type 2 diabetes mellitus) Status: Acute Qualifiers: Diabetes mellitus detention insulin use: without termite control representative use Diabetes mellitus complication status: with hyperosmolarity Diabetes mellitus complication detail: without coma Qualified Codes: E11.00 - Type 2 diabetes mellitus with hyperosmolarity without nonketotic hyperglycemic-hyperosmolar coma ([facility]) (3) Pseudohyponatremia Status: Acute (4) Hyperkalemia Status: Acute (5) Hypokalemia Status: Acute (6) Excessive consumption of soda pop (7) Tobacco abuse ARIANNA BARBOZA MD Mar 23, 2023 18:53
[2023-03-23 23:40] VITALS: BP 105/64
[2023-03-24 03:31] VITALS: BP 106/69
[2023-03-24 06:03] LABS: BASOPHILS % (AUTO) 1 % (0-10); EOSINOPHILS # (AUTO) 0.1 10^3/uL (0.0-0.3); EOSINOPHILS % (AUTO) 2 % (0-10); HEMATOCRIT 41 % (40-54); HEMOGLOBIN 14.8 g/dL (13.3-17.7); LYMPHOCYTES # (AUTO) 2.6 10^3/uL (1.0-4.0); LYMPHOCYTES % (AUTO) 47 % (12-44); MEAN CORPUSCULAR HEMOGLOBIN 32 pg (25-34); MEAN CORPUSCULAR HGB CONC 36 g/dL (32-36); MEAN CORPUSCULAR VOLUME 88 fL (80-99); MEAN PLATELET VOLUME 11.3 fL (9.0-12.2); MONOCYTES # (AUTO) 0.3 10^3/uL (0.0-1.0); MONOCYTES % (AUTO) 6 % (0-12); NEUTROPHILS # (AUTO) 2.5 10^3/uL (1.8-7.8); NEUTROPHILS % (AUTO) 44 % (42-75); PLATELET COUNT 170 10^3/uL (130-400); WHITE BLOOD COUNT 5.6 10^3/uL (4.3-11.0)
[2023-03-24 06:26] LABS: ALBUMIN 3.3 GM/DL (3.2-4.5); CHLORIDE 107 MMOL/L (98-107); POTASSIUM 3.9 MMOL/L (3.6-5.0); SODIUM 134 MMOL/L (135-145)
[2023-03-24 06:27] LABS: CALCIUM 8.3 MG/DL (8.5-10.1)
[2023-03-24 06:28] LABS: TRIGLYCERIDES 453 MG/DL (<150)
[2023-03-24 06:29] LABS: CARBON DIOXIDE 19 MMOL/L (21-32); GLUCOSE 174 MG/DL (70-105)
[2023-03-24 06:30] LABS: BILIRUBIN,TOTAL 0.4 MG/DL (0.1-1.0)
[2023-03-24] MEDS: POTASSIUM CHLORIDE 20 MEQ TABLET PO SCH (06:31)
[2023-03-24] MEDS: POTASSIUM CL 10MEQ/50ML IVPB 50 ML IV SCH (06:31)
[2023-03-24 06:32] LABS: ALKALINE PHOSPHATASE 84 U/L (40-136); CREATININE SERUM 0.83 MG/DL (0.60-1.30); GFR ESTIMATED 113; PHOSPHORUS 2.9 MG/DL (2.3-4.7)
[2023-03-24 06:33] LABS: BUN/CREATININE RATIO 8; CHOLESTEROL 171 MG/DL (< 200)
[2023-03-24 06:34] LABS: HDL CHOLESTEROL 23 MG/DL (40-60)
[2023-03-24 06:35] LABS: ALANINE AMINOTRANSFERASE 20 U/L (0-55); MAGNESIUM 1.9 MG/DL (1.6-2.4)
[2023-03-24] MEDS: MAGNESIUM 1 GM/100 ML IVPB 100 ML IV SCH ×3 (06:36→06:45)
[2023-03-24] MEDS ORDERED: MAGNESIUM 1 GM/100 ML IVPB 200 ML IV ONE (06:41)
[2023-03-24] MEDS: inSUlin ASPART 1 UNIT/0.01 ML (PER UNIT) SC SCH ×2 (06:43→11:49)
[2023-03-24] MEDS ORDERED: POTASSIUM CHLORIDE 20 MEQ TABLET PO ONE (07:00)
[2023-03-24] MEDS ORDERED: metFORMIN 500 MG TABLET PO SCH (07:00)
[2023-03-24 07:11] VITALS: BP 99/62
[2023-03-24 08:32] VITALS: BP 107/68
[2023-03-24] MEDS: NICOTINE 21 MG PATCH TD SCH (08:34)
[2023-03-24] MEDS ORDERED: inSUlin DETERMIR 1 UNIT/0.01 ML (CHARGE PER UNIT) SQ SCH (09:00)
[2023-03-24] MEDS ORDERED: INSU100I10 SQ (10:56)
[2023-03-24] MEDS ORDERED: METF-397 PO (10:56)
[2023-03-24] MEDS ORDERED: ATOR20TA66 PO (10:56)
[2023-03-24] MEDS: ENOXAPARIN 40 MG/0.4 ML SYRINGE SC SCH (11:17)
[2023-03-24 11:26] VITALS: BP 119/77
[2023-03-24] MEDS ORDERED: BLOO-661 MC (11:50)
[2023-03-24] MEDS ORDERED: [UNRECOGNIZED DRUG - CODE] MC (11:50)
[2023-03-24] MEDS ORDERED: BLOO-662 MC (11:50)
--- NOTE | 2023-03-24 18:35 | Discharge Summary ---
Discharge Summary Hospital Course Problems/Dx: (1) New onset type 2 diabetes mellitus Status: Acute (2) T2DM (type 2 diabetes mellitus) Status: Acute Qualifiers: Qualified Codes: E11.00 - Type 2 diabetes mellitus with hyperosmolarity without nonketotic hyperglycemic-hyperosmolar coma ([facility]) (3) Pseudohyponatremia Status: Acute (4) Hyperkalemia Status: Acute (5) Hypokalemia Status: Acute (6) Excessive consumption of soda pop (7) Tobacco abuse Hospital Course Date of Admission: Mar 22, 2023 at 20:51 Admission Diagnosis : New onset T2DM with [facility] Family Physician/Provider: Augustine Smith Physician Date of Discharge: 03/24/23 Discharge Diagnosis: New onset T2DM with [facility] Hospital Course: Hugo Sanchez is a 42 year old male who presented with weakness and was admitted with new onset type II diabetes mellitus with hyperosmolar hyperglycemic state. He was treated with IV fluids, IV insulin, and electrolyte replacement. His symptoms resolved. He was started on long acting insulin and Metformin. He will begin Lantus 20 units daily. He was given diabetes education. He was set up with a glucometer, lancets, test strips, and insulin pens. He had dyslipidemia, primarily hypertriglyceridemia, and was started on Lipitor. He was encouraged to stop drinking Mountain Dew. He was encouraged to stop smoking. He needs to establish care with a primary care physician and has an appointment to establish care at [facility]. He was discharged home in stable condition. Labs and Pending Lab Test: Laboratory Tests 03/23/23 21:03: Glucometer 289H 03/24/23 02:15: Glucometer 192H 03/24/23 05:07: Glucometer 165H 03/24/23 05:44: White Blood Count 5.6, Red Blood Count 4.70, Hemoglobin 14.8, Hematocrit 41, Mean Corpuscular Volume 88, Mean Corpuscular Hemoglobin 32, Mean Corpuscular Hemoglobin Concent 36, Red Cell Distribution Width 11.9, Platelet Count 170, Mean Platelet Volume 11.3, Immature Granulocyte % (Auto) 0, Neutrophils (%) (Auto) 44, Lymphocytes (%) (Auto) 47H, Monocytes (%) (Auto) 6, Eosinophils (%) (Auto) 2, Basophils (%) (Auto) 1, Neutrophils # (Auto) 2.5, Lymphocytes # (Auto) 2.6, Monocytes # (Auto) 0.3, Eosinophils # (Auto) 0.1, Basophils # (Auto) 0.0, Immature Granulocyte # (Auto) 0.0, Sodium Level 134L, Potassium Level 3.9, Chloride Level 107, Carbon Dioxide Level 19L, Anion Gap 8, Blood Urea Nitrogen 7, Creatinine 0.83, Estimat Glomerular Filtration Rate 113, BUN/Creatinine Ratio 8, Glucose Level 174H, Calcium Level 8.3L, Corrected Calcium 8.9, Phosphorus Level 2.9, Magnesium Level 1.9, Total Bilirubin 0.4, Aspartate Amino Transf (AST/SGOT) 22, Alanine Aminotransferase (ALT/SGPT) 20, Alkaline Phosphatase 84, Total Protein 6.0L, Albumin 3.3, Triglycerides Level 453H, Cholesterol Level 171, LDL Cholesterol Direct 97, VLDL Cholesterol , HDL Cholesterol 23L 03/24/23 11:21: Glucometer 214H Microbiology 03/22/23 MRSA Screen - Final, Complete MRSA not isolated Home Meds Active Lancets 33 Gauge Each Each [facility] Pharmacist Choice (Blood-Glucose Meter) 1 Each Each [facility] Pharmacist Choice (Blood Sugar Diagnostic) 1 Each Strip 1 Each [facility] 30 Days Lantus Solostar (Insulin Glargine,Hum.rec.anlog) 100 Unit/Ml (3 Ml) Insuln.pen 20 Unit SQ DAILY 30 Days Metformin HCl 500 Mg Tablet 500 Mg PO DAILY@07 30 Days Atorvastatin Calcium 20 Mg Tablet 20 Mg PO HS 30 Days Assessment/Pt Instructions see instructions Discharge Planning: >30 minutes discharge planning Discharge Instructions Discharge Diet: ADA Diet Activity as Tolerated: Yes Discharge Physical Examination Vital Signs Vital Signs Date Time Temp Pulse Resp B/P (MAP) Pulse Ox O2 Delivery O2 Flow Rate FiO2 03/24/23 11:26 36.2 62 18 119/77 (91) 99 Room Air General Appearance: No Apparent Distress, WD/WN Respiratory: Lungs Clear, No Respiratory Distress Cardiovascular: Regular Rate, Rhythm, No Murmur Gastrointestinal: Normal Bowel Sounds, Soft Extremity: Normal Inspection, No Pedal Edema Neurologic/Psychiatric: Alert, Normal Mood/Affect Allergies: Coded Allergies: No Known Drug Allergies (Unverified , 01/30/20) Copy Copies To 1: [facility] [place] Summary Date of Admission Mar 22, 2023 at 20:51 Date of Discharge Mar 24, 2023 at 13:45 Discharge Date: Mar 24, 2023 Discharge Time: 13:45 Admission Diagnosis T2DM with HHS Discharge Diagnosis New onset T2DM with HHS Pseudohyponatremia Hyperkalemia Hypokalemia Excessive consumption of soda pop Tobacco abuse (1) New onset type 2 diabetes mellitus Status: Acute (2) T2DM (type 2 diabetes mellitus) Status: Acute Qualifiers: Qualified Codes: E11.00 - Type 2 diabetes mellitus with hyperosmolarity without nonketotic hyperglycemic-hyperosmolar coma ([facility]) (3) Pseudohyponatremia Status: Acute (4) Hyperkalemia Status: Acute (5) Hypokalemia Status: Acute (6) Excessive consumption of soda pop (7) Tobacco abuse JERAD BARBOZA MD Mar 24, 2023 18:35
[2023-03-25] MEDS ORDERED: NICOTINE PATCH REMOVAL TP SCH (08:59)
== END 2023-03-24 13:45 | disposition home or self-care (01) | DRG 639 ==
LOC: EDUNIT# 18:34 → ER FS 18:36 → ICU 20:51 → 4TH 03-23 16:36
PROVIDERS: ADMIT Internal Medicine; ATTEND Internal Medicine
DX: E11.00 Type 2 diabetes mellitus with hyperosmolarity without nonketotic hyperglycemic-hyperosmolar coma (NKHHC) (principal); E87.5 Hyperkalemia; E87.6 Hypokalemia; F17.210 Nicotine dependence, cigarettes, uncomplicated
CPT/HCPCS: 36415; 80048; 80053; 80061; 81000; 82947; 83036; 83735; 84100; 85025; 87081